=== PATIENT | male | born 1960 | race African-American/Black ===

== ENCOUNTER 2018-09-08 19:55 | Inpatient (IN) | payer OTHER ==
[~2018-09-08] VITALS: Ht 170.2 cm; Wt 80.7 kg
[2018-09-08 21:53] VITALS: BP 153/91
[2018-09-08 22:23] VITALS: BP 173/91
[2018-09-08 22:46] VITALS: BP 152/93
[2018-09-09 00:25] LABS: ABSOLUTE NEUTROPHILS 5.3 thou/uL (1.4-8.2); BASOPHILS 1.1 % (0.0-2.0); EOSINOPHILS 5.1 % (0.0-3.0); HEMATOCRIT 39.4 % (42.0-52.0); HEMOGLOBIN 13.4 gm/dL (14.0-18.0); LYMPHOCYTES 26.8 % (24.0-44.0); MCH 29.9 pg (26.0-34.0); MCHC 34.1 g/dL (28.0-37.0); MCV 87.7 fL (80.0-100.0); PLATELET COUNT 254 thou/uL (150-400); RBC 4.49 mil/uL (4.50-6.00); RDW 13.9 % (10.5-14.5)
[2018-09-09 00:31] LABS: CALCIUM 9.3 mg/dL (8.5-10.1); CREATININE 1.4 mg/dL (0.7-1.3); POTASSIUM 3.6 mmol/L (3.5-5.1)
[2018-09-09 00:33] LABS: APTT 27.4 Seconds (24.5-32.8); PROTIME 10.8 Seconds (9.3-11.4)
[2018-09-09 03:47] VITALS: BP 153/92
--- NOTE | 2018-09-09 04:19 | NUR ---
PT ARRIVED TO THE UNIT AT AROUND 2230.PT IS ALERT TO SELF AND SITUATION. A LITTLE FORGETFUL AND WITH SOME EXPRESSIVE APHASIA. HE HAS NOT C/O PAIN SINCE COMING TO THE UNIT.HE IS CONTINENT VS INCONTINENT.ROOM AIR. CLL LIGHT AND NEEDED ITEMS WITHIN REACH.
[2018-09-09 08:11] VITALS: BP 144/95
--- NOTE | 2018-09-09 13:30 | NUR ---
ASSUMED CARE OF PT AT 0700. ASSESSMENT COMPLETED. ALERT TO PERSON, PLACE, AND SITUATION. C/O BACK PAIN WITH MOVEMENT, DOES NOT REQUEST PAIN MEDS AT THIS TIME. PLAN FOR VERTEBROPLASTY TODAY - PT LEFT IN STABLE CONDITION AT 10:24 AND RETURNED RESTING IN STABLE CONDITION AT 11:24. BANDAID TO SITE ON BACK. NO OTHER CHANGE IN STATUS. WILL CONTINUE TO MONITOR.
--- NOTE | 2018-09-09 13:59 | NUR ---
INITIAL ASSESSMENT: Pt evaluated for d/c planning needs. Reviewed chart and spoke with nurse and pt. Pt is alert and oriented. Pt lives in apartment with daughter. Pt states he was independent with ADL's prior to admission to the hospital. Pt has walker at home, and has not had home health in the past. Pt plans on returning to apartment with daughter on d/c from hospital. Will remain available to assist as needed.
--- NOTE | 2018-09-09 17:34 | NUR ---
PATIENT TRANSFERRED FROM 421 TO SICU 223, PATIENT A&OX3, DENIES PAIN OR DISCOMFORT, PATIENT NOTED WITH SLOW STEADY GAIT WHEN TRANSFERRING FROM WHEELCHAIR TO BED, RUE DOUBLE LUMEN SALINE LOCK INTACT AND PATENT WITH FLUSH, FALL PRECAUTIONS IN PLACE, PATIENT SET UP FOR DINNER, PERSONAL BELONGINGS AND CALL LIGHT IN REACH, WILL CONTINUE TO MONITOR
[2018-09-09] MEDS ORDERED: REMERON15 MG PO (19:05)
[2018-09-09] MEDS ORDERED: LIPITOR80 MG PO (19:05)
[2018-09-09] MEDS ORDERED: NORVASC5 MG PO (19:06)
[2018-09-09] MEDS ORDERED: ASPIR 8181 MG PO (19:06)
--- NOTE | 2018-09-09 19:08 | NUR ---
VITAL SIGNS TAKEN, BLOOD PRESSURE ELEVATED 152/102, PATIENT STATED HE DIDNT TAKE MEDICATIONS, DAUGHTER WITH WHOM PATIENT STAYS WITH VERIFIED SHE GIVES PATIENT MEDICATION, DAUGHTER HAD MEDICATION ON PERSON, NURSE SPOKE WITH AGITATOR OPERATOR, AGITATOR OPERATOR WILL RESTART MEDICATIONS ONCE NURSE INPUTS IN TO RECONCILE RX
[2018-09-09 20:44] VITALS: BP 160/105
--- NOTE | 2018-09-10 05:14 | NUR ---
ASSUMED CARE OF PATIENT AT 1900. HTN NOTED AT BEGINNING OF SHIFT. HOME MED AMLODIPINE GIVEN AT HS WITH NO IMPROVEMENT IN BP. NEW O FOR HYDRALAZINE RECEIVED FROM RUPA DUKE AND GIVEN FOR BP OF 160/105 WITH DESIRED EFFECT ACHIEVED. PT DENIES PAIN THIS SHIFT. INCONTINENT OF BLADDER X1. AMBULATED WITH WALKER TO TOILET X1. LBM: 5/4 AM. RIGHT UPPER ARM DOUBLE LUMEN IV PATENT AND SALINE LOCKED. ALERT AND ORIENTED TO PERSON, PLACE, AND SITUATION. ASSESSMENT COMPLETED AT 1945 AND IS DOCUMENTED. PT CURRENTLY SLEEPING SOUNDLY IN BED IN NO ACUTE DISTRESS. BED LOCKED AND IN LOWEST POSITION. CALL LIGHT WITHIN REACH. WCTM.
--- NOTE | 2018-09-10 05:22 | NUR ---
THIS NURSE AGREES WITH ASSESSMENT AND NOTES BY AUTOMOTIVE ELECTRICAL HELPER ON THIS PATIENT.
[2018-09-10 09:00] VITALS: BP 150/97
--- NOTE | 2018-09-10 11:12 | NUR ---
ASSUMED PATIENT AND CARES AT 0715, PATIENT WOKE IN BED WATCHING TV, A&OX3, NOT ORIENTED TO TIME, DENIES PAIN AND DISCOMFORT, DOUBLE LUMEN RUE SALINE LOCK INTACT AND PATENT PER FLUSH, INCONTINENT OF BLADDER, NURSE TO ORDER BRIEFS, FALL PRECAUTIONS IN PLACE, PERSONAL BELONGINGS AND CALL LIGHT IN REACH, WILL CONTINUE TO MONITOR
[2018-09-10] MEDS ORDERED: TRAMADOL 50 MG50 MG PO (12:29)
[2018-09-10 14:23] VITALS: BP 150/97
--- NOTE | 2018-09-10 17:09 | NUR ---
PATIENT DISCHARGED TO HOME, NURSE DISCUSSED DISCHARGE INSTRUCTIONS AND MEDICATIONS, DAUGHTER MADE AWARE TO CALL ON WEDNESDAY TO SET UP OUTPATIENT PT FOR PATIENT PER CASE MANAGEMENT RECOMMENDATION, HOME HEALTH FOR PT SERVICES UNAVAILABLE FOR PATIENT DUE TO INSURANCE, DAUGHTER AWARE PATIENT RECEIVED A SHOWER AND GAVE PATIENT SECOND SHOWER PRIOR TO DRESSING HIM FOR DISCHARGE, RUE SALINE LOCK REMOVED AND GAUZE AND TAPE, HEALTH INSURANCE AGENT TOOK PATIENT PER WHEELCHAIR TO ENTRANCE OF BUILDING D
== END 2018-09-10 17:16 | disposition home or self-care (01) | DRG 516 ==
LOC: ER 19:55 → EROBS 21:27 → 4E 21:27 → ENTRNSPT 09-09 16:39 → SICU 09-09 16:57
PROVIDERS: Nurse Practitioner; ADMIT Internal Medicine
PROC: 0QU03JZ Supplement Lumbar Vertebra with Synthetic Substitute, Percutaneous Approach (ICD-10-PCS; principal; 2018-09-09)
DX: S32.019A Unspecified fracture of first lumbar vertebra, initial encounter for closed fracture (principal); I69.354 Hemiplegia and hemiparesis following cerebral infarction affecting left non-dominant side; M48.061 Spinal stenosis, lumbar region without neurogenic claudication; W18.39XA Other fall on same level, initial encounter; Y93.89 Activity, other specified; Y92.89 Other specified places as the place of occurrence of the external cause; Y99.8 Other external cause status
CPT/HCPCS: 10183; 15002

== ENCOUNTER 2019-10-19 21:08 | Inpatient (IN) | payer OTHER ==
[~2019-10-19] VITALS: Ht 172.7 cm; Wt 59.5 kg
--- NOTE | ~2019-10-19 | EMS ---
[address] [address] EMS Patient Care Report Name: RODGER CHAN Room #: REG TANIKA Montesinos#: [id number] Admission: 10/19/19 Attend Phys: Discharge: Date of : 58 Report #: [id number] THIS REPORT FOR: //name// Report Transmitted: 10/19/2019 20:59 EMS Care Summary [place], [place]/[facility] Incident [id number] @ 10/19/2019 20:29 Incident Location [address] Patient RODGER CHAN Male, 58 Years 1960 Patient Address Patient History Dementia,Stroke/CVA, Patient Allergies No known allergies, Patient Medications Mirtazapine, Aspirin, Amlodipine, Tramadol, Chief Complaint elevated white count Disposition Transported No Lights/[place] Dispatch Reason Sick Person Transported To [facility] Narrative S: 58 yo male had 6 teeth extracted today due to infection. The pt was started on antibiotics by the dentist. The pt had lab work drawn today and family found his white count elevated and called 911. The pts family would like him started on IV antibiotics. Upon our arrival the pt was alert and oriented to his normal mental status. The pt per the custodial is essentially nonverbal. The pt has been messing with his mouth where is teeth were pulled. No N/V. The pt does not appear in any distress at this time. [address] [address] EMS Patient Care Report Name: RODGER CHAN Room #: REG [facility].#: [id number] Admission: 10/19/19 Attend Phys: Discharge: Date of : 58 Report #: [id number] O: gcs- 13. no obvious resp distress noted. The pt has blood around his mouth. The pt does not express any discomfort at this time. A: elevated white count per family P: vs, oxygen, Pt transported to [facility] without any changes. The pt was placed on oxygen although his sats did not change. In the ER his oxygen levels were normal. Initial Vitals @20:54P: 70,SpO2: 81, @20:53P: 64,BP: 105/66,SpO2: 78, @20:49P: 130,R: 16,BP: 115/81,Pain: 0/10,GCS: 12,Revised Trauma: 11, @20:56P: 76,SpO2: 84, @21:02P: 70,R: 16,BP: 91/64,Pain: 0/10,GCS: 12,SpO2: 83,Revised Trauma: 11, Assessments @20:50MENTAL:Confused,SKIN:HEENT:Head/Face: No Abnormalities,Eyes: No Abnormalities,Neck/Airway: No Abnormalities,LUNG SOUNDS:General: No Abnormalities,ABDOMEN:General: No Abnormalities,PELVIS//GI:No Abnormalities,EXTREMITIES:Left Arm: No Abnormalities,Right Arm: No Abnormalities,Left Leg: No Abnormalities,Right Leg: No Abnormalities,PULSE:NEURO:Other, Impression Generalized Weakness Procedures @20:45ALS AssessmentResponse: UnchangedSucceeded Timeline 20:26,Call Received 20:26,Dispatch Notified 20:29,Dispatched 20:30,En Route 20:40,On Scene 20:42,At Patient 20:45,ALS Assessment,Response: UnchangedSucceeded, 20:49,BP: 115/81 M,PULSE: 130,RR: 16 R,SPO2: Ox,ETCO2: ,BG: ,PAIN: 0,GCS: 12, 20:50,Depart Scene 20:53,BP: 105/66 M,PULSE: 64,RR: R,SPO2: 78 Ox,ETCO2: ,BG: ,PAIN: ,GCS: , 20:54,BP: / M,PULSE: 70,RR: R,SPO2: 81 Ox,ETCO2: ,BG: ,PAIN: ,GCS: , 20:56,BP: / M,PULSE: 76,RR: R,SPO2: 84 Ox,ETCO2: ,BG: ,PAIN: ,GCS: , 21:02,At Destination 21:02,BP: 91/64 M,PULSE: 70,RR: 16 R,SPO2: 83 Ox,ETCO2: ,BG: ,PAIN: 0,GCS: 12, 21:24,Call Closed Disclaimer [address] [address] EMS Patient Care Report Name: RODGER CHAN Room #: REG M.R.#: [id number] Admission: 10/19/19 Attend Phys: Discharge: Date of : 58 Report #: [id number] v1.1 Copyright 2020 [employer] This EMS Care Summary contains data elements from the applicable legal record (which may be displayed differently). It is designed to provide pertinent information for the following purposes: continuity of care, clinical quality, and state data reporting. The complete legal record is available to ED staff and administrators of the receiving hospital in [employer] Patient Tracker. All data is provided "as is."
[~2019-10-19 21:08] MED LIST: ASPIR 8181 MG PO; LIPITOR80 MG PO; NORVASC5 MG PO; REMERON15 MG PO; TRAMADOL 50 MG50 MG PO
[2019-10-19 21:26] VITALS: BP 114/77
[2019-10-19 22:39] LABS: ABSOLUTE NEUTROPHILS 11.8 thou/uL (1.4-8.2); BASOPHILS 0.2 % (0.0-2.0); EOSINOPHILS 7.9 % (0.0-3.0); HEMATOCRIT 29.4 % (42.0-52.0); HEMOGLOBIN 9.4 gm/dL (14.0-18.0); MCH 25.8 pg (26.0-34.0); MCHC 32.1 g/dL (28.0-37.0); MCV 80.4 fL (80.0-100.0); MONOCYTES 7.7 % (1.0-8.0); PLATELET COUNT 553 thou/uL (150-400); POLYS 68.2 % (36.0-66.0); RBC 3.65 mil/uL (4.50-6.00); RDW 14.8 % (10.5-14.5); WBC 17.3 thou/uL (4.0-11.0)
[2019-10-19 22:52] LABS: CREATININE 1.7 mg/dL (0.7-1.3); POTASSIUM 4.3 mmol/L (3.5-5.1)
[2019-10-19 22:59] LABS: ALBUMIN 2.2 g/dL (3.4-5.0); DIRECT BILIRUBIN 0.2 mg/dL (<0.1-0.2); TOTAL BILIRUBIN 0.5 mg/dL (0.2-1.0); TOTAL PROTEIN 8.7 g/dL (6.4-8.2)
--- NOTE | 2019-10-20 00:36 | NUR ---
IMPRESSION OF CT 1) LARGE RIGHT UPPER LOBE MASS MEASURING 6.2 X 5.7 CM. SUSPICIOUS FOR PRIMARY LUNG NEOPLASM VERSUS METASTATIC DISEASE. 2)BILATERAL ADRENAL MASSES ARE SEEN SUSPICIOUS FOR METASTATIC DISEASE. RECOMMEND MRI/ABDOMEN FOR FURTHER WORK UP. 3)SCLEROTIC DENSITIES IN THE L1 TO T-5 VETEBRAL BODIES. POSSIBLE METASTATIC DISEASE. 4)ACUTE COMPRESSION FRACTURE SEEN IN THE T-1 VERTEBRAL BODY. POSSIBLE PATHOLOGICAL COMPACT FRACTURE. 5)CONSOLIDATIONS IN THE R LOWER LOBE CONSISTENT WITH PNEUMONIA. CORONAVIRUS IS THE DIFFERENTIAL. TUMOR INFILTRATE IS THE DIFFERENTIAL.
[2019-10-20 03:45] VITALS: BP 123/72
[2019-10-20 04:05] VITALS: BP 131/75
--- NOTE | 2019-10-20 07:01 | NUR ---
ASSUMED CARE OF PT FROM ED AT 0350 HRS. PT AOX1-2 AND NEEDS MUST BE ANTICIPATED. FALL PRECAUTION IN PLACE. ENHANCED PRECAUTION IN PLACE. PT IS INCT. FREQ CHECKS NEEDED. PT IS A POOR HISTORIAN AND INFO WAS OBTAINED FROM MD FACE SHEET. ORDERS RECEIVED AND INITIATED. SCD IN PLACE. PT ISRUNNING ST ON TELE. PT WAS ABLE TO GET COMFORTABLE AND SLEEP PART OF THE SHIFT. PT HAD A TEMP OF 99.2 BUT OTHER VSS. NO S/S OF ACUTE DISTRESS. WILL CONTINUE TO MONITOR.
[2019-10-20] MEDS ORDERED: VITAMIN C250 MG PO (07:08)
[2019-10-20] MEDS ORDERED: IBU800 MG PO (07:10)
[2019-10-20] MEDS ORDERED: TRAMADOL 50 MG50 MG PO (07:11)
[2019-10-20] MEDS ORDERED: B COMPLEX1 EACH PO (07:12)
[2019-10-20 08:38] VITALS: BP 106/76
[2019-10-20 11:14] LABS: % SATURATION 12 % (20-39); IRON 18 ug/dL (65-175); TIBC 155 ug/dL (250-450)
[2019-10-20 12:40] VITALS: BP 110/60
--- NOTE | 2019-10-20 13:18 | NUR ---
INITIAL ASSESSMENT: SATISH reviewed chart and spoke with nursing and attending physician. Pt was admitted from [facility] due to pneumonia. Pt with possible metastatic cancer. Oncology consulted. Pt with hx of CVA with left sided weakness. Pt is in Enhanced Isolation to r/o COVID-19. Test is negative. SATISH spoke with pt's dtr, Belle ([phone]) via phone. Introduced role of SATISH. Pt has lived at [facility] since January of 2019. Pt's CVA was in 2014. Pt's dtr states that pt is w/c bound at the facility, and needs assistance with ADLs. Plan is for pt to return to [place] when medically stable. Contact info for SW and nurses station provided. No weekend discharge planned. SATISH provided update to [facility] post-acute liaison. land use planner to fax updates to [facility] for review. SATISH is following to assist as needed with discharge planning.
--- NOTE | 2019-10-20 13:58 | NUR ---
PT IS FROM [facility] FAXED CLINICAL UPDATE SPOKE WITH SHANNEN IN ADM SHE RECEIVED UPDATE.
[2019-10-20 15:36] LABS: APTT 26.4 Seconds (24.5-32.8); INR 1.1; PROTIME 11.4 Seconds (9.3-11.4)
[2019-10-20 16:41] VITALS: BP 86/60
--- NOTE | 2019-10-20 17:21 | NUR ---
ASSUMED PATIENT CARE AT 0700. ALERT, KNOWN HE IS IN HOSPITAL. ONLY ANSWER YES OR NO. LEFT SIDE WEAKNESS. ASSISTED TURN. BP 86/60 AT 1640. NS BOLUS. PATIENT DENIES PAIN. AFEBRILE. SOLWLY TOWARDS POC GOALS.
[2019-10-20 19:21] VITALS: BP 122/81
--- NOTE | 2019-10-20 20:21 | NUR ---
PT AWAKE RESTING IN BED WATCHING TV. PT ATTEMPTING TO TAKE OFF CLOTHES, PT NOTED TO HAVE INCONTINENT BM, SECOND ONE OF THE DAY. BROWN SEMI FORMED. PT ABLE TO FOLLOW COMMANDS AND ANSWERED YES AND NO TO DIRECT QUESTIONS. IVF INTACT, EXTERNAL MALE CATHETER INTACT. PT RESTLESS IN BED MOVING EXTREMITIES AND TURNING SIDE TO SIDE. SCDS ON. PT ON HEPARIN. PT HAS LOOSE COUGH. LUNGS COARSE.
[2019-10-21 03:40] VITALS: BP 116/75
[2019-10-21 03:46] VITALS: BP 116/75
[2019-10-21 05:40] LABS: HEMATOCRIT 23.9 % (42.0-52.0); HEMOGLOBIN 7.9 gm/dL (14.0-18.0); MCH 27.3 pg (26.0-34.0); MCHC 32.9 g/dL (28.0-37.0); RBC 2.88 mil/uL (4.50-6.00); RDW 14.4 % (10.5-14.5); WBC 18.3 thou/uL (4.0-11.0)
[2019-10-21 05:57] LABS: ALBUMIN 1.8 g/dL (3.4-5.0); CALCIUM 8.6 mg/dL (8.5-10.1); CREATININE 1.3 mg/dL (0.7-1.3); POTASSIUM 3.9 mmol/L (3.5-5.1); TOTAL BILIRUBIN 0.3 mg/dL (0.2-1.0)
--- NOTE | 2019-10-21 06:25 | NUR ---
PT HAD 2 LARGE SOFT FORMED STOOLS AND 1 LIQUID BROWN STOOL, NO ODOR.
[2019-10-21 08:14] VITALS: BP 117/81
[2019-10-21 08:53] LABS: URINE BILIRUBIN NEGATIVE (Negative); URINE BLOOD 3+ (Negative); URINE CLARITY CLEAR; URINE COLOR YELLOW; URINE GLUCOSE-RANDOM* NEGATIVE (Negative); URINE KETONES NEGATIVE (Negative); URINE LEUKOCYTES-REFLEX NEGATIVE (Negative); URINE NITRITE-REFLEX NEGATIVE (Negative); URINE PROTEIN (DIPSTICK) NEGATIVE (Negative); URINE SPECIFIC GRAVITY 1.015 (1.005-1.035)
[2019-10-21 09:09] LABS: BACTERIA-REFLEX 1-9 Few /HPF (None Seen); CASTS None Seen /LPF (None Seen); CRYSTALS None Seen /LPF (None Seen); SQUAMOUS None Seen /LPF (0-3); URINE RBC 3-10 Few /HPF (0-2); URINE WBC-REFLEX None Seen /HPF (0-5)
[2019-10-21 15:10] VITALS: BP 116/80
--- NOTE | 2019-10-21 18:36 | NUR ---
ASSUMED PATIENT CARE AT 0700. ALERT. RESTLESS ON BED. INCONTIUNE BM. RN NOTED PATIENT COUGH AFTER THIN LIQID. ST ORDERED. VSS. SLOELY TOWARDS POC GOALS.
[2019-10-21 19:21] VITALS: BP 122/76
[2019-10-22 03:01] VITALS: BP 139/95
--- NOTE | 2019-10-22 03:41 | NUR ---
PT IS AWAKE BUT CONFUSED. HIS SPEECH IS QUIET AND RASPY. HE FOLLOWS SOME COMMANDS BUT FORGETS QUICKLY AND PICKS AT THINGS CONSTANTLY. VSS LOW GRADE TEMP NOTED. LUNGS ARE CLEAR AND UNLABORED ON RA. NO S/S PAIN OR DISTRESS NOTED. MOISTURTE BARRIER APPLIED TO BUTTOCKS. CONDUM CATHETER HAS REMAINED INTACT DRAINING CLEAR YELLOW URINE IN ADEQUATE AMTS. IV FLUIDS INFUSING WITHOUT DIFFICULTY. R AC. BED DOWN CALL LIGHT IN REACH. BED ALARM IS ON.
[2019-10-22 04:49] LABS: HEMATOCRIT 26.4 % (42.0-52.0); HEMOGLOBIN 8.9 gm/dL (14.0-18.0); MCH 27.1 pg (26.0-34.0); MCHC 33.8 g/dL (28.0-37.0); MCV 80.1 fL (80.0-100.0); RBC 3.3 mil/uL (4.50-6.00); RDW 14.7 % (10.5-14.5); WBC 21.7 thou/uL (4.0-11.0)
[2019-10-22 05:03] LABS: ALBUMIN 1.8 g/dL (3.4-5.0); CALCIUM 8.1 mg/dL (8.5-10.1); CREATININE 1.3 mg/dL (0.7-1.3); TOTAL BILIRUBIN 0.3 mg/dL (0.2-1.0); TOTAL PROTEIN 7.2 g/dL (6.4-8.2)
[2019-10-22 07:58] VITALS: BP 135/91
[2019-10-22 17:37] VITALS: BP 132/91
--- NOTE | 2019-10-22 17:50 | NUR ---
assumed patient care at 0700. alert. restless on bed. offered patient honey thicken liquid due to cough on thin liquid. patient gagging on mash potato. waitting for ST parr. notified dr montes to call patienr's daughter about treatment plans. slowly towards poc goals.
[2019-10-22 20:00] VITALS: BP 135/107
--- NOTE | 2019-10-22 20:07 | HC ---
[facility] [address] [place] [address] CONSULTATION Name: RODGER CHAN Room #: 361 ADM IN M.R.#: [id number] Admission: 10/20/19 Attend Phys: Al Pacheco Discharge: Date of : 58 Report #: [id number] THIS REPORT FOR: cc: Chase Lock MD, Shyam MD McKittrick, Richard James MD ~ CC: Al Batres MD REQUESTING PHYSICIAN: Al Pacheco MD REASON FOR CONSULTATION: Right hilar mass, probable lung cancer. HISTORY OF PRESENT ILLNESS: The patient is a 58-year-old gentleman who resides in a alf facility after a stroke about a year and a half ago, reportedly was having more falling episodes may be some cough, shortness of breath, about 30-pound weight loss and some mentation difficulties, had some recent teeth extraction, was evaluated in the [place] ER and found to have a right lung mass on a CAT scan, this appears to be a large mass with mediastinal lymph nodes and also possible bone changes and also possible small adrenal masses. The patient is really unable to answer any questions today. He answers with simple monosyllabic answers like yes and no and I cannot really understand him, cannot tell if he is able to comprehend or not. PAST MEDICAL HISTORY: Notable for the recent finding of right hilar mass with mediastinal adenopathy and possible bilateral masses in the adrenals and also possible bony changes. Also, history of CVA from 12/2017 with supposedly residual weakness, though it is unclear how much. Also, history of hypertension, history of hyperlipidemia, history of vascular dementia and history of dysphagia, sick euthyroid syndrome. SOCIAL HISTORY: Lives at a alf facility. No reported alcohol or tobacco use recently. FAMILY HISTORY: Not obtainable at this time. MEDICATIONS: In the hospital currently include vancomycin, ipratropium and albuterol respiratory therapy, pantoprazole daily p.o., Zosyn IV, MiraLax daily p.r.n., Zofran p.r.n. and hydrocodone p.r.n. PHYSICAL EXAMINATION: GENERAL: The patient appears his stated age. [facility] [address] [place] [address] CONSULTATION Name: FENTONRODGER Room #: [address] [place] [address] IN M.R.#: [id number] Admission: 10/20/19 Attend Phys: Al Pacheco Discharge: Date of : 58 Report #: [id number] VITAL SIGNS: Height is 5 feet 8 inches, 172.7 cm, weight 138 pounds or 62.7 kilograms. Blood pressure is 131/75, O2 sat 97% on room air, respirations 20, pulse 99.2, pulse varies between 89 and 120, O2 requirements had been on room air. HEENT: Face is symmetric. MOOD: Altered. NEUROLOGIC: His ear, nose and face looks mostly symmetric. He is not able to answer questions. There may be a little bit of left-sided weakness, but he does have a decent sheet roller operator on both sides and he is able to push his toes down. LYMPHATICS: No enlarged lymph nodes in the supraclavicular, cervical, axillary or inguinal region. ABDOMEN: Scaphoid, no masses. EXTREMITIES: Without clubbing or cyanosis. There may be some trace edema. LABORATORY DATA: Notable for creatinine of 1.7. Albumin 2.2. Transaminases normal. Calcium 10. CAT scan as mentioned above notable for the extensive mediastinal and right hilar infracarinal adenopathy with a large mass in the right upper lung suspicious for malignancy. Also, bilateral adrenal masses, also mixed lytic and sclerotic lesions present in several vertebral bodies, most prominent at T5 and L1, though there is osteoplasty cement in L1. Compression fractures present at T6 and T1 and L1. ASSESSMENT AND PLAN: 1. Probable bronchogenic lung cancer. Note the Pulmonary is to consult, await their evaluation, may consider bronchoscopy or CT-image guided biopsy of either lung mass or possibly adrenals. We will also order CT head given mentation changes and probable lung cancer. 2. Postobstructive type pneumonitis and possible sepsis. Cultures pending. Currently on vancomycin and Zosyn. 3. Emphysema/COPD type illness. Continue inhalation therapies. 4. Hypertension. Meds per others. 5. Hyperlipidemia. Meds per others. 6. History of stroke and possible dysphasia. Defer to other rehabilitation services. 7. History of sick euthyroid. Continue monitoring. 8. Prophylaxis: Lovenox as appropriate. 9. Anemia. We will check an iron panel MCV in the past had been 87.7, currently 80.4. <ELECTRONICALLY SIGNED> By: Timothy Wade MD 10/22/192006 9 7 Timothy Wade MD /nt
[2019-10-22 20:17] VITALS: BP 123/98
[2019-10-22 23:44] VITALS: BP 140/88
--- NOTE | 2019-10-23 02:21 | NUR ---
PT PROGRESSING SLOWLY TOWARDS D/C GOALS. VSS. LOW GRADE TEMPS. LUNGS ARE CLEAR PRESENTLY AND UNLABORED ON RA. PT STILL CONFUSED AND PULLS AT TUBES FREQUENTLY. BED BATH DONE AND LINENS CHANGED. PT INC OF STOOL IN LG AMTS. MOISTURE BARRIER APPLIED TO BUTTOCKS. CONDUM CATHETER REMAINS INTACT DRAINING CLEAR YELLOW URINE. PAIN PILL GIVEN FOR GENERALIZED DISCOMFORT. PT IS NOW RESTING BETTER. NO S/S DISTRESS.
[2019-10-23 05:03] VITALS: BP 134/93
[2019-10-23 05:45] LABS: HEMATOCRIT 24.3 % (42.0-52.0); MCH 26.4 pg (26.0-34.0); MCHC 32.9 g/dL (28.0-37.0); MCV 80.2 fL (80.0-100.0); RBC 3.03 mil/uL (4.50-6.00); RDW 14.8 % (10.5-14.5); WBC 20.8 thou/uL (4.0-11.0)
[2019-10-23 05:49] LABS: PLATELET COUNT 411 thou/uL (150-400)
[2019-10-23 05:57] LABS: INR 1.1; PROTIME 10.8 Seconds (9.3-11.4)
[2019-10-23 06:04] LABS: ALBUMIN 1.7 g/dL (3.4-5.0); CALCIUM 8.3 mg/dL (8.5-10.1); CREATININE 1.1 mg/dL (0.7-1.3); PHOSPHORUS 3.6 mg/dL (2.5-4.9); POTASSIUM 3.9 mmol/L (3.5-5.1); TOTAL BILIRUBIN 0.3 mg/dL (0.2-1.0); TOTAL PROTEIN 6.6 g/dL (6.4-8.2)
[2019-10-23 07:38] VITALS: BP 128/92
[2019-10-23 08:12] LABS: ABSOLUTE NEUTROPHILS 16.6 thou/uL (1.4-8.2); PLATELET ESTIMATE NORMAL
[2019-10-23 12:02] LABS: URINE BILIRUBIN NEGATIVE (Negative); URINE BLOOD 1+ (Negative); URINE CLARITY CLEAR; URINE COLOR YELLOW; URINE GLUCOSE-RANDOM* NEGATIVE (Negative); URINE KETONES NEGATIVE (Negative); URINE LEUKOCYTES-REFLEX NEGATIVE (Negative); URINE NITRITE-REFLEX NEGATIVE (Negative); URINE PROTEIN (DIPSTICK) NEGATIVE (Negative); URINE UROBILINOGEN 0.2 E.U./dl (0.2-1.0)
[2019-10-23 12:24] LABS: BACTERIA-REFLEX 1-9 Few /HPF (None Seen); CASTS None Seen /LPF (None Seen); CRYSTALS None Seen /LPF (None Seen); SQUAMOUS 0-3 Few /LPF (0-3); URINE RBC None Seen /HPF (0-2); URINE WBC-REFLEX None Seen /HPF (0-5)
--- NOTE | 2019-10-23 14:54 | NUR ---
Assumed pt care at 11 am, condom cat in place draing light yellow urine. UA taken via straight cat aas per order and am nurse sample sent to the lab, condom cat replaced. Evaluated by speech, pt is a feeder prefers honey thickened iced tea, small frequent feeding done through out the shift along with hydration. Prefers to be on his left side, he is able to turn on his own and straighten out on the bed. COVID test done and sent to the lab. Spoke to the daughter Belle, informed her that Monica hook has been placed in a buket with ice since as per Dr. Carrington this requires refrigeration. Pt is to be on hospice care as per Dr. Carrington and to facilitate visit of the daughter, house sup informed daughter is to visit at 3:30 pm through the ER and can only stay for 30 mins as per policy.
--- NOTE | 2019-10-23 16:41 | NUR ---
SW reviewed chart and spoke with nursing and attending physician. Attending physician met with pt's dtr, Belle, to discuss plan of care and treatment plan. Pt's dtr is agreeable with referral to [facility]. SW faxed clinical updates to [place] and notified post acute liaison of plan for hospice. [facility] requires a negative COVID test within 72 hours of discharge. COVID test ordered today. SW spoke with pt's dtr, Belle, via phone to provide update and discuss hospice referral. Pt's dtr states that [facility] has already evaluated pt at the facility prior to admission. SW discussed plan for discharge back to [place] with [facility] tomorrow. Pt's dtr is agreeable with plan. SW faxed referral to [facility] and notified [facility] account liaison. Plan is for pt to d/c to [facility] with hospice tomorrow. SATISH is following to assist as needed with discharge planning.
[2019-10-23 17:18] VITALS: BP 140/97
[2019-10-23 20:50] VITALS: BP 128/86
--- NOTE | 2019-10-23 23:51 | NUR ---
PT IS STILL CONFUSED, RARELY ANSWERS NS. FIDGETY IN BED. VSS AFEBRILE. HRR. LUNGS SLIGHTLY COARSE ON RIGHT SIDE TONIGHT. SAT 95% ON RA. PT MAKING GRUNTING SOUNDS EARLIER. HYDROCODONE GIVEN FOR S/S GENERALIZED DISCOMFORT. HE IS NOW RESTING QUIETLY. WILL CONTINUE TO MONITOR PT FOR CHANGES.
[2019-10-24 03:39] VITALS: BP 140/92
--- NOTE | 2019-10-24 06:44 | NUR ---
Pt remains nonverbal and confused, pulls at things most of night. VSS. Afebtile tonight. Voiding lg amts clear yellow urine per condum catheter. Pt remains on honey thickened liquids pureed diet. No changes in assessment.
[2019-10-24 07:48] VITALS: BP 132/99
[2019-10-24 08:30] VITALS: BP 132/99
--- NOTE | 2019-10-24 10:26 | NUR ---
PT'S SECOND COVID WAS NEGATIVE FROM 10/23/19 TEST, PT DOES NOT HAVE FEVER AND SOB , PT MAY DC TO SNF TODAY.
[2019-10-24] MEDS ORDERED: PEPCID20 MG PO (11:59)
[2019-10-24] MEDS ORDERED: MIRALAX17 GM PO (11:59)
[2019-10-24] MEDS ORDERED: TRAMADOL 50 MG50 MG PO (11:59)
[2019-10-24] MEDS ORDERED: AUGMENTIN 875-1 EACH PO (11:59)
[2019-10-24] MEDS ORDERED: HYDROCODON-ACE1 EAC7 PO (11:59)
[2019-10-24] MEDS ORDERED: PREDNISONE 10 M10 M1 PO (11:59)
--- NOTE | 2019-10-24 13:36 | NUR ---
DISCHARGE NOTE: SATISH reviewed chart and spoke with nursing and attending physician. Pt is medically stable for discharge back to [facility] today with [facility]. SW faxed finalized discharge orders/summary to [facility]. Liaison arranged stretcher van transportation for [phone] per facility's arrangements. SATISH faxed d/c orders/summary to [facility] and notified [facility], operator specialist communications of transportation time. [facility] will meet pt at the facility upon his arrival. SATISH spoke with pt's dtr, Belle, via phone to provide update and notify of discharge time. Pt's dtr is aware and agreeable with plan. Chart copy requested. Nursing to call report to [phone]. No additional SW needs identified at this time, but is available to assist should needs arise.
--- NOTE | 2019-10-24 13:51 | NUR ---
SATISH reviewed chart and spoke with nursing and attending physician. Pt is progressing towards goals for discharge. SATISH faxed updated clinical and therapy note to [facility] for review. SATISH contacted therapy mgr to request PT/OT to see pt today. Awaiting insurance authorization at this time. SATISH left voice message for pt's guardian, Ese, to provide update. SATISH is following to assist as needed with discharge planning.
--- NOTE | 2019-10-24 14:35 | NUR ---
PT IS UNABLE TO VERBALIZE, PT IS CONFUSED AND HE CANNOT FOLLOW COMMANDS, PT STARTS EATING WITH ASSIST, PT IS CONTINUING IV FLIUD AND IV ABX, PT'S VS ARE STABLE, PT WILL DC TO SNF ( [facility]) WITH HOSPICE , THE TRANSPORTATION WILL CLUSTER BORE OPERATOR PT ABOUT 1600PM, RN HAS GIVING REPORT, AND [facility] HAVE TAKING TO PT'S FAMILY ABOUT PT'S DC, PT'S CODE STATUS HAS CHANGED TO NO CODE.
[2019-10-24 15:03] VITALS: BP 120/90
--- NOTE | 2019-10-24 15:30 | NUR ---
TRANSPORTATION PERSON HOT TOP LINER PT TO [facility] AT THIS TIME.
== END 2019-10-24 15:33 | disposition hospice, inpatient (51) | DRG 871 ==
LOC: ER 21:08 → EROBS 10-20 01:29 → 3W 10-20 03:46
PROVIDERS: Emergency Medicine; Internal Medicine; Internal Medicine Hematology & Oncology; Internal Medicine Pulmonary Disease; Nurse Practitioner Family; ADMIT Hospitalist; ATTEND Hospitalist
DX: A41.9 Sepsis, unspecified organism (principal); J18.9 Pneumonia, unspecified organism; E43 Unspecified severe protein-calorie malnutrition; J96.01 Acute respiratory failure with hypoxia; G92 Toxic encephalopathy; I69.354 Hemiplegia and hemiparesis following cerebral infarction affecting left non-dominant side; N17.9 Acute kidney failure, unspecified; E87.0 Hyperosmolality and hypernatremia; M48.54XA Collapsed vertebra, not elsewhere classified, thoracic region, initial encounter for fracture; M48.56XA Collapsed vertebra, not elsewhere classified, lumbar region, initial encounter for fracture; R65.20 Severe sepsis without septic shock; E27.9 Disorder of adrenal gland, unspecified; J98.4 Other disorders of lung; J43.9 Emphysema, unspecified; E78.5 Hyperlipidemia, unspecified; D64.9 Anemia, unspecified; I12.9 Hypertensive chronic kidney disease with stage 1 through stage 4 chronic kidney disease, or unspecified chronic kidney disease; F03.90 Unspecified dementia, unspecified severity, without behavioral disturbance, psychotic disturbance, mood disturbance, and anxiety; Z20.828 Contact with and (suspected) exposure to other viral communicable diseases; G89.29 Other chronic pain; M54.9 Dorsalgia, unspecified; N18.9 Chronic kidney disease, unspecified; E07.81 Sick-euthyroid syndrome; Z66 Do not resuscitate; Z79.899 Other long term (current) drug therapy; R59.9 Enlarged lymph nodes, unspecified
CPT/HCPCS: 10879